=== PATIENT | male | born 1990 | race Caucasian/White ===

== ENCOUNTER 2018-06-02 17:32 | Emergency (ER) | payer SELFPAY ==
[~2018-06-02] VITALS: Ht 165.1 cm; Wt 63.6 kg
[2018-06-02] MEDS ORDERED: KETOROLAC TROMETHAMINE 10 MG TABLET PO ONE (18:45)
[2018-06-02 20:01] VITALS: BP 122/80
== END 2018-06-02 20:12 | disposition home or self-care (01) ==
LOC: EMS 17:33
DX: S62.326A Displaced fracture of shaft of fifth metacarpal bone, right hand, initial encounter for closed fracture (principal); S05.12XA Contusion of eyeball and orbital tissues, left eye, initial encounter; F12.90 Cannabis use, unspecified, uncomplicated; Y04.0XXA Assault by unarmed brawl or fight, initial encounter; Y93.89 Activity, other specified; Y92.89 Other specified places as the place of occurrence of the external cause; Y99.8 Other external cause status